=== PATIENT | male | born 1965 | race African-American/Black ===

== ENCOUNTER 2022-01-07 20:07 | Emergency (ER) | payer OTHER ==
[~2022-01-07] VITALS: Ht 177.8 cm; Wt 81.8 kg
[2022-01-07] MEDS ORDERED: HYDR25TA2 PO (20:09)
[2022-01-07] MEDS ORDERED: LOSA-381 PO (20:09)
[2022-01-07 23:58] VITALS: BP 149/76
== END 2022-01-08 | disposition home or self-care (01) ==
LOC: EMS 20:08
DX: S93.602A Unspecified sprain of left foot, initial encounter (principal); F10.20 Alcohol dependence, uncomplicated; F17.210 Nicotine dependence, cigarettes, uncomplicated; I10 Essential (primary) hypertension; X58.XXXA Exposure to other specified factors, initial encounter; Y93.89 Activity, other specified; Y92.89 Other specified places as the place of occurrence of the external cause; Y99.8 Other external cause status; Z88.0 Allergy status to penicillin
CPT/HCPCS: 99283

== ENCOUNTER 2022-01-12 09:28 | Emergency (ER) | payer OTHER ==
[~2022-01-12] VITALS: Ht 177.8 cm; Wt 84.1 kg
[~2022-01-12 09:28] MED LIST: HYDR25TA2 PO; LOSA-381 PO
[2022-01-12 10:20] VITALS: BP 127/84
== END 2022-01-12 10:28 | disposition home or self-care (01) ==
LOC: EMS 10:04
DX: Z02.79 Encounter for issue of other medical certificate (principal); S93.602D Unspecified sprain of left foot, subsequent encounter; I10 Essential (primary) hypertension; F17.210 Nicotine dependence, cigarettes, uncomplicated; Z98.890 Other specified postprocedural states; Z88.0 Allergy status to penicillin; X58.XXXD Exposure to other specified factors, subsequent encounter
CPT/HCPCS: 99281; Z7502